=== PATIENT | male | born 1995 | race Caucasian/White ===

== ENCOUNTER 2016-06-09 22:06 | Emergency (ER) | payer BC ==
--- NOTE | 2016-06-09 23:28 | EDM.PDOC ---
ED HPI GENERAL MEDICAL PROBLEM - General Chief Complaint: General Stated Complaint: Not feeling well, BP elevated Time Seen by Provider: 06/09/16 22:13 Source of Information: Reports: Patient, RN, RN notes reviewed History Limitations: Reports: No limitations - History of Present Illness INITIAL COMMENTS - FREE TEXT/NARRATIVE: Patient presents to the ED at [facility] with concerns of elevated blood pressure, dizziness, and generally not feeling well. Patient states around 7- 8pm this evening he was at an event for truck pulling. Patient states the ventilation was poor and the air was heavy to breath. Patient states his blood pressure becomes elevated when he has symptoms of dizziness and feeling sick. Patient has known hypertension and is currently taking Losartan 25 mg PO daily. He was diagnosed with HTN about 5 years ago. 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 He states he currently feels chest pain in the center part of his chest. No radiation. He states it feeling like his chest "is pulling together." Denies any SOB. No focal neurological deficits. Patient denies any N/V/D. Onset: today, gradual Onset Date: 06/09/16 Onset Time: 19:00 Duration: Waxing/waning Location: Reports: chest Quality: Reports: Pressure Severity: mild Improves with: Reports: Rest Worsens with: Reports: Movement Context: Reports: Other (exposure to carbon monoxide at a sporting event this evening) - Related Data Allergies Allergy/AdvReac Type Severity Reaction Status Date / Time No Known Drug Allergies Allergy Other Verified 06/09/16 22:54 Home Meds: Home Meds Losartan Potassium [Losartan Potassium] 25 mg PO DAILY 05/09/16 [History] Past Medical History Cardiovascular History: Reports: Cardiomyopathy Gastrointestinal History: Reports: Other (see below) Other Gastrointestinal History: History of vomiting blood so had a EGD which was normal. 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 GI Surgical History: Reports: EGD Social & Family History - Tobacco Use Smoking Status *Q: Never Smoker Years of Tobacco use: 4 - Alcohol Use Days Per Week of Alcohol Use: 0 Number of Drinks Per Day: 7 Total Drinks Per Week: 0 - Recreational Drug Use Recreational Drug Use: No - Living Situation & Occupation Living situation: Reports: single, other (congregate with college students ) Occupation: employed (foreman shipping department cook) ED ROS GENERAL - Review of Systems Review Of Systems: See Below Constitutional: Denies: fever, chills, weakness Respiratory: Denies: shortness of breath, cough Cardiovascular: Reports: Chest pain, Blood pressure problem, Lightheadedness. Denies: Dyspnea on exertion, Palpitations GI/Abdominal: Denies: Abdominal pain, Diarrhea, Nausea, Vomiting Skin: Reports: no symptoms Neurological: Reports: dizziness, headache. Denies: numbness, paresthesia, tingling ED EXAM, GENERAL - Physical Exam Exam: See Below Exam Limited By: No limitations General Appearance: alert, no apparent distress Eye Exam: bilateral eye: EOMI, normal inspection, PERRL Head: atraumatic, normocephalic Respiratory/Chest: no respiratory distress, lungs clear, normal breath sounds Cardiovascular: normal peripheral pulses, regular rate, rhythm, no edema, no JVD Peripheral Pulses: 2+: radial (L), radial (R) GI/Abdominal: normal bowel sounds, soft, non tender Neurological: alert, oriented, normal cognition Skin Exam: Warm, Dry, Intact, Normal color, No rash EKG INTERPRETATION EKG Date: 06/09/16 Time: 23:02 Rhythm: NSR Rate (beats/min): 78 [place]: normal P-wave: present QRS: normal ST-T: normal QT: normal NC/PQ Interval: 0.17 Comparison: NA - no prior EKG EKG Interpretation Comments: 1. Sinus Rhythm 2. Possible Inferior Myocardial infarct (30ms Q Wave in II/aVF), probably old 3. Borderline ECG 4. Interpretation based on a default age of 40 years Course - Vital Signs Last Recorded V/S: Last Vital Signs Temp 37.1 C 06/09/16 22:30 Pulse 88 06/09/16 22:30 Resp 16 06/09/16 22:30 BP 147/90 H 06/09/16 22:30 Pulse Ox 98 06/09/16 22:30 - Orders/Labs/Meds Orders: Active Orders 24 hr Category Date Time Status EKG 12 Lead [EKG Documentation Completion] [RC] STAT Care 06/09/16 22:56 Active CARBOXYHEMOGLOBIN [REF] Stat Lab 06/09/16 23:09 Received Labs: Laboratory Tests 06/09/16 06/09/16 Range/Units 23:09 23:09 WBC 10.1 H (4.0-10.0) x10^3/uL RBC 5.46 (4.5-6.0) x10^6/uL Hgb 15.2 (14.0-18.0) g/dL Hct 45.0 (40.0-52.0) % MCV 82.4 (78.0-93.0) fL MCH 27.8 (26.0-32.0) pg MCHC 33.8 (32.0-36.0) g/dL RDW Coeff of Jeison 14.4 (10.0-15.0) % Plt Count 238 (130-400) x10^3/uL Neut % (Auto) 60.8 (50.0-80.0) % Lymph % (Auto) 25.4 (25.0-50.0) % [place] % (Auto) 8.1 (2.0-11.0) % Eos % (Auto) 5.2 H (0.0-4.0) % Baso % (Auto) 0.5 (0.2-1.2) % Sodium 141 (136-145) mmol/L Potassium 3.7 (3.5-5.1) mmol/L Chloride 104 (98-107) mmol/L Carbon Dioxide 29 (21-32) mmol/L BUN 13 (7-18) mg/dL Creatinine 1.1 (0.70-1.30) mg/dL Est Cr Clr Drug Dosing TNP Estimated GFR (MDRD) > 60 Glucose 103 (74-106) mg/dL Calcium 9.0 (8.5-10.1) mg/dL Creatine Kinase 146 (39-308) U/L Creatine Kinase Index 0.8 (0.0-4.0) % CK-MB (CK-2) 1.1 (0.0-3.6) ng/mL Troponin I < 0.017 (<=0.056) ng/mL Departure - Departure Time of Disposition: 23:46 Disposition: Home, Self-Care 01 Condition: good Clinical Impression: Atypical chest pain Instructions: Nonspecific Chest Pain Referrals: PCP,Not In Area [Primary Care Provider] - Forms: ED Department Discharge Additional Instructions: 1. Stay well hydrated and rest; avoid and environmental inhalation irritants 2. Continue taking your blood pressure medications 3. Recommend making a follow up appointment with your Primary 4. Return to ED at symptoms warrant - Problem List Review Problem List Initiated/Reviewed/Updated: Yes - My Orders Last 24 Hours: My Active Orders 06/09/16 22:56 EKG 12 Lead [EKG Documentation Completion] [RC] STAT 06/09/16 23:09 CARBOXYHEMOGLOBIN [REF] Stat - Assessment/Plan Last 24 Hours: My Active Orders 06/09/16 22:56 EKG 12 Lead [EKG Documentation Completion] [RC] STAT 06/09/16 23:09 CARBOXYHEMOGLOBIN [REF] Stat
[2016-06-09 23:42] LABS: CHLORIDE,CL 104 mmol/L (98-107); SODIUM,NA 141 mmol/L (136-145)
[2016-06-10 07:05] VITALS: BP 150/79
== END 2016-06-10 00:16 | disposition home or self-care (01) ==
LOC: VM.ED 22:06
DX: R07.89 Other chest pain (principal); I10 Essential (primary) hypertension; I42.9 Cardiomyopathy, unspecified; Z79.899 Other long term (current) drug therapy
CPT/HCPCS: 36415; 80048; 82375; 82550; 82553; 84484; 85025; 93005; 99284

== ENCOUNTER 2017-08-15 17:08 | Emergency (ER) | payer BC, OTHER ==
[2017-08-15 18:24] LABS: CHLORIDE,CL 105 mmol/L (98-107); SODIUM,NA 140 mmol/L (136-145)
[2017-08-15 18:44] VITALS: BP 130/75
--- NOTE | 2017-08-16 06:15 | EDM.PDOC ---
ED HPI GENERAL MEDICAL PROBLEM - General Chief Complaint: Chest Pain Stated Complaint: chest pain Time Seen by Provider: 08/15/17 17:23 Source of Information: Reports: Patient History Limitations: Reports: No Limitations - History of Present Illness INITIAL COMMENTS - FREE TEXT/NARRATIVE: Pt. presents to ER with acute onset sharp anterior chest pain to the right of the sternum. States that discomfort was fairly acute in onset. Pt. has a history of ablation and has has numerous episodes of pericarditis. Denies fever or chills. He states that the discomfort is localized and is not diffuse. Denies any jaw, arm, neck, or back pain. No shortness of breath or peripheral edema. Location: Reports: Chest Quality: Reports: Sharp Severity: Moderate - Related Data Allergies Allergy/AdvReac Type Severity Reaction Status Date / Time No Known Drug Allergies Allergy Other Verified 08/15/17 17:23 Home Meds: Home Meds Losartan [Cozaar] 50 mg PO DAILY 08/15/17 [History] Omeprazole 20 mg PO DAILY PRN 08/15/17 [History] Past Medical History Cardiovascular History: Reports: Cardiomyopathy Gastrointestinal History: Reports: Other (See Below) Other Gastrointestinal History: History of vomiting blood so had a EGD which was normal. - Past Surgical History HEENT Surgical History: Reports: Tonsillectomy Cardiovascular Surgical History: Reports: Cardiac Ablation, Other (See Below) Social & Family History - Tobacco Use Smoking Status *Q: Never Smoker - Recreational Drug Use Recreational Drug Use: No - Living Situation & Occupation Living situation: Reports: Single, Other Occupation: Employed ED ROS GENERAL - Review of Systems Review Of Systems: See Below Constitutional: Reports: No Symptoms HEENT: Reports: No Symptoms Respiratory: Reports: No Symptoms Cardiovascular: Reports: Chest Pain Endocrine: Reports: No Symptoms GI/Abdominal: Reports: No Symptoms : Reports: No Symptoms Musculoskeletal: Reports: No Symptoms Skin: Reports: No Symptoms Neurological: Reports: No Symptoms Psychiatric: Reports: No Symptoms Hematologic/Lymphatic: Reports: No Symptoms Immunologic: Reports: No Symptoms ED EXAM, GENERAL - Physical Exam Exam: See Below Exam Limited By: No Limitations General Appearance: Alert, WD/WN, No Apparent Distress Eye Exam: Bilateral Eye: EOMI, Normal Fundi, Normal Inspection, PERRL Ears: Normal External Exam, Normal Canal, Hearing Grossly Normal, Normal TMs Nose: Normal Inspection, Normal Mucosa, No Blood Throat/Mouth: Normal Inspection, Normal Lips, Normal Teeth, Normal Gums, Normal Oropharynx, Normal Voice, No Airway Compromise Head: Atraumatic, Normocephalic Neck: Normal Inspection, Supple, Non-Tender, Full Range of Motion Respiratory/Chest: No Respiratory Distress, Lungs Clear, Normal Breath Sounds, No Accessory Muscle Use, Chest Non-Tender Cardiovascular: Normal Peripheral Pulses, Regular Rate, Rhythm, No Edema, No Gallop, No JVD, No Murmur, No Rub Peripheral Pulses: 4+: Radial (L), Radial (R) GI/Abdominal: Normal Bowel Sounds, Soft, Non-Tender, No Organomegaly, No Distention, No Abnormal Bruit, No Mass Rectal (Males) Exam: Normal Exam, Normal Rectal Tone, Prostate Normal Back Exam: Normal Inspection, Full Range of Motion, NT Extremities: Normal Inspection, Normal Range of Motion, Non-Tender, Normal Capillary Refill, No Pedal Edema Neurological: Alert, Oriented, CN II-XII Intact, Normal Cognition, Normal Gait, Normal Reflexes, No Motor/Sensory Deficits EKG INTERPRETATION Rhythm: NSR [place]: Normal P-Wave: Present QRS: Normal ST-T: Normal QT: Normal Course - Vital Signs Last Recorded V/S: Last Vital Signs Temp 37.2 C 08/15/17 17:20 Pulse 65 08/15/17 18:43 Resp 17 08/15/17 18:43 BP 130/75 08/15/17 18:43 Pulse Ox 97 08/15/17 18:43 - Orders/Labs/Meds Orders: Active Orders 24 hr Category Date Time Status EKG 12 Lead [EKG Documentation Completion] [RC] STAT Care 08/15/17 17:52 Active Chest 2V [CR] Stat Exams 08/15/17 17:20 Taken Labs: Laboratory Tests 08/15/17 08/15/17 08/15/17 Range/Units 17:52 17:52 17:52 WBC 6.5 (4.0-10.0) x10^3/uL RBC 5.16 (4.5-6.0) x10^6/uL Hgb 14.5 (14.0-18.0) g/dL Hct 43.4 (40.0-52.0) % MCV 84.1 (78.0-93.0) fL MCH 28.1 (26.0-32.0) pg MCHC 33.4 (32.0-36.0) g/dL RDW Coeff of Jeison 14.2 (10.0-15.0) % Plt Count 237 (130-400) x10^3/uL Add Manual Diff Yes Neutrophils % (Manual) 41 L (50-80) % Band Neutrophils % 1 (0-6) % Lymphocytes % (Manual) 42 (25-50) % Monocytes % (Manual) 10 (2-11) % Eosinophils % (Manual) 6 H (0-4) % Platelet Estimate Adequate PT 10.3 (9.6-11.4) SEC INR 1.0 L (2.0-3.5) Sodium 140 (136-145) mmol/L Potassium 3.9 (3.5-5.1) mmol/L Chloride 105 (98-107) mmol/L Carbon Dioxide 22 (21-32) mmol/L Anion Gap 16.9 (10-20) mmol/L BUN 14 (7-18) mg/dL Creatinine 1.0 (0.70-1.30) mg/dL Est Cr Clr Drug Dosing 119.64 mL/min Estimated GFR (MDRD) > 60 Glucose 89 (74-106) mg/dL Calcium 8.5 (8.5-10.1) mg/dL Corrected Calcium 8.74 (8.5-10.1) mg/dL Total Bilirubin 0.4 (0.2-1.0) mg/dL AST 21 (15-37) U/L ALT 29 (16-63) U/L Alkaline Phosphatase 95 (46-116) U/L POC Troponin I (0.00-0.08) ng/mL C-Reactive Protein < 0.2 (<=0.9) mg/dL Total Protein 7.3 (6.4-8.2) g/dL Albumin 3.7 (3.4-5.0) g/dL Globulin 3.6 Albumin/Globulin Ratio 1.03 / Range/Units 17:57 WBC (4.0-10.0) x10^3/uL RBC (4.5-6.0) x10^6/uL Hgb (14.0-18.0) g/dL Hct (40.0-52.0) % MCV (78.0-93.0) fL MCH (26.0-32.0) pg MCHC (32.0-36.0) g/dL RDW Coeff of Jeison (10.0-15.0) % Plt Count (130-400) x10^3/uL Add Manual Diff Neutrophils % (Manual) (50-80) % Band Neutrophils % (0-6) % Lymphocytes % (Manual) (25-50) % Monocytes % (Manual) (2-11) % Eosinophils % (Manual) (0-4) % Platelet Estimate PT (9.6-11.4) SEC INR (2.0-3.5) Sodium (136-145) mmol/L Potassium (3.5-5.1) mmol/L Chloride (98-107) mmol/L Carbon Dioxide (21-32) mmol/L Anion Gap (10-20) mmol/L BUN (7-18) mg/dL Creatinine (0.70-1.30) mg/dL Est Cr Clr Drug Dosing mL/min Estimated GFR (MDRD) Glucose (74-106) mg/dL Calcium (8.5-10.1) mg/dL Corrected Calcium (8.5-10.1) mg/dL Total Bilirubin (0.2-1.0) mg/dL AST (15-37) U/L ALT (16-63) U/L Alkaline Phosphatase (46-116) U/L POC Troponin I 0.01 (0.00-0.08) ng/mL C-Reactive Protein (<=0.9) mg/dL Total Protein (6.4-8.2) g/dL Albumin (3.4-5.0) g/dL Globulin Albumin/Globulin Ratio Departure - Departure Time of Disposition: 18:40 Disposition: Home, Self-Care 01 Condition: Good Clinical Impression: Atypical chest pain - Discharge Information Instructions: Nonspecific Chest Pain, [id number] Referrals: PCP,Not In Area [Primary Care Provider] - Forms: ED Department Discharge Additional Instructions: All of your labs, x-ray, and EKG were normal. Follow-up in clinic if this is continuing to happen. Return to ER if you have worsening discomfort, shortness of breath, or lightheadedness. - My Orders Last 24 Hours: My Active Orders 08/15/17 17:20 Chest 2V [CR] Stat 08/15/17 17:52 EKG 12 Lead [EKG Documentation Completion] [RC] STAT - Assessment/Plan Last 24 Hours: My Active Orders 08/15/17 17:20 Chest 2V [CR] Stat 08/15/17 17:52 EKG 12 Lead [EKG Documentation Completion] [RC] STAT
== END 2017-08-15 18:40 | disposition home or self-care (01) ==
LOC: VM.ED 17:08
DX: R07.89 Other chest pain (principal); Z79.899 Other long term (current) drug therapy
CPT/HCPCS: 36415; 71046; 80053; 84484; 85025; 85610; 86140; 93005; 99285